=== PATIENT | female | born 1955 | race Caucasian/White ===

== ENCOUNTER → 2017-04-19 | Outpatient (CLI) | payer OTHER ==
[2013-12-23 09:52] VITALS: BP 162/82
[~2017-04-19] MED LIST: ASPI325T8 PO; Aspirin PO; CA C1TAB28 PO; CHOL10003 PO; CRESTOR10 MG PO; DULO60CA6 PO; HYDR-2762 PO; HYDR-971 PO; Hydrocodone Bit/Acetaminophen PO
--- NOTE | 2017-04-19 15:34 | RAD ---
Indication thumb pain. No known injury. An AP view of the hand was obtained. Exposure factors are suboptimal regarding this image. Additional AP and lateral imaging targeted to the thumb was performed. No acute finding is seen. 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 An acute bony finding involving the thumb is not seen.
[2017-04-19 15:57] LABS: CALCIUM 8.8 mg/dL (8.5-10.1); CREATININE 0.7 mg/dL (0.6-1.0); GFR 85.1; POTASSIUM 3.4 mmol/L (3.5-5.1)
[2017-04-19 17:47] LABS: CHOLESTEROL/HDL RATIO 4.7
== END | disposition home or self-care (01) ==
LOC: LAB 14:51
PROVIDERS: ATTEND Specialist
DX: M79.645 Pain in left finger(s) (principal); E78.00 Pure hypercholesterolemia, unspecified
CPT/HCPCS: 36415; 73140; 80048; 80061; 82550; 84450; 84460; 86803

== ENCOUNTER → 2017-09-15 | Outpatient (CLI) | payer OTHER ==
[2017-09-15 07:56] LABS: ADD MAN DIFF? NO
[2017-09-15 08:01] LABS: BASO % 1 % (0-3); EOS # 0.2 x10^3/uL (0.0-0.7); EOS % 4 % (0-3); HEMATOCRIT 46.4 % (36.0-47.0); HEMOGLOBIN 15.4 g/dL (12.0-15.5); LYMPH # 1.3 x10^3/uL (1.0-4.8); LYMPH % 22 % (24-48); MEAN CORPUSCULAR HEMOGLOBIN 30 pg (25-35); MEAN CORPUSCULAR HGB CONC 33 g/dL (31-37); MEAN CORPUSCULAR VOLUME 91 fL (79-100); MONO # 0.3 x10^3/uL (0.0-1.1); MONO % 6 % (0-9); NEUT % 68 % (31-73); PLATELET COUNT 211 x10^3/uL (140-400); RED BLOOD COUNT 5.13 x10^6/uL (3.50-5.40); RED CELL DISTRIBUTION WIDTH 13.1 % (11.5-14.5); WHITE BLOOD COUNT 5.9 x10^3/uL (4.0-11.0)
[2017-09-15 08:33] LABS: ALBUMIN/GLOBULIN RATIO 1.2 (1.0-1.7); ALK PHOS 91 U/L (46-116); ALT (SGPT) 35 U/L (14-59); ANION GAP 8 (6-14); AST (SGOT) 20 U/L (15-37); BLOOD UREA NITROGEN 24 mg/dL (7-20); BUN/CREATININE RATIO 30 (6-20); CALCIUM 9.4 mg/dL (8.5-10.1); CARBON DIOXIDE 31 mmol/L (21-32); CHLORIDE 107 mmol/L (98-107); CHOLESTEROL 211 mg/dL (0-200); CREATININE 0.8 mg/dL (0.6-1.0); GFR 72.9; GLUCOSE 117 mg/dL (70-99); HDLC 56 mg/dL (40-60); LDLC 116 mg/dL (0-100); MAGNESIUM 2.3 mg/dL (1.8-2.4); NON-HDL CHOLESTEROL 155 mg/dL (0-129); POTASSIUM 4.4 mmol/L (3.5-5.1); SODIUM 146 mmol/L (136-145); TOTAL BILIRUBIN 0.4 mg/dL (0.2-1.0); TOTAL PROTEIN 7.4 g/dL (6.4-8.2); TRIGLYCERIDES 196 mg/dL (0-150); VLDLC 39 mg/dL (0-40)
[2017-09-15 08:37] LABS: CHOLESTEROL/HDL RATIO 3.8
== END | disposition home or self-care (01) ==
LOC: LAB 06:11
DX: E78.2 Mixed hyperlipidemia (principal); R00.2 Palpitations
CPT/HCPCS: 36415; 80053; 80061; 83735; 84443; 85025

== ENCOUNTER → 2017-10-24 | Outpatient (CLI) | payer OTHER | END | disposition home or self-care (01) | LOC: ECHO 12:48 | DX: R00.2 Palpitations (principal); I51.7 Cardiomegaly; E78.2 Mixed hyperlipidemia | CPT/HCPCS: 93306 ==